=== PATIENT | male | born 1975 | race Hispanic/Latino ===

== ENCOUNTER 2022-11-23 15:06 | Inpatient (IN) | payer OTHER ==
[2022-11-23] VITALS (31 sets, daily range): BP systolic 92–153; BP diastolic 51–80
[~2022-11-23] VITALS: Ht 170.2 cm; Wt 72.6 kg
[2022-11-23] MEDS ORDERED: HEPARIN 25,000 UNITS/250ML D5W 250 ML IV SCH (17:30)
[2022-11-23] MEDS ORDERED: ONDANSETRON 4MG INJ IVP PRN (17:30)
[2022-11-23] MEDS ORDERED: POTASSIUM CHLORIDE 20MEQ/100ML 100 ML IV PRN (17:30)
[2022-11-23] MEDS ORDERED: LIDOCAINE HCL-MPF 1% 2ML VIAL IV PRN (17:30)
[2022-11-23] MEDS ORDERED: ACETAMINOPHEN 325 MG TAB PO PRN (17:30)
[2022-11-23 17:32] LABS: HEMOGLOBIN A1C 10.1 % (4.0-6.0)
[2022-11-23 17:41] LABS: THYROID STIMULATING HORMONE 2.02 uIU/mL (0.36-3.74)
[2022-11-23 17:49] LABS: BASOPHILS % (AUTO) 0.8 % (0.0-5.0); EOSINOPHILS % (AUTO) 4.2 % (0.0-8.0); HEMATOCRIT 41.8 % (42-54); LYMPHOCYTES % (AUTO) 34.6 % (21.0-51.0); MEAN CORPUSCULAR HEMOGLOBIN 30.6 pg (27.0-33.0); MEAN CORPUSCULAR HGB CONC 36.1 g/dL (32.0-36.0); MEAN CORPUSCULAR VOLUME 84.8 fL (79-99); MONOCYTES % (AUTO) 8.6 % (3.0-13.0); NEUTROPHILS % (AUTO) 51.6 % (40.0-77.0); PLATELET COUNT (AUTO) 229 K/uL (130-400); RED BLOOD CELL COUNT(AUTO) 4.93 MIL/uL (4.50-6.20); RED CELL DISTRIBUTION WIDTH 13.3 % (11.0-15.5); WHITE BLOOD COUNT (AUTO) 8.2 K/uL (4.8-10.8)
[2022-11-23 18:01] LABS: ALBUMIN 3.7 g/dL (3.5-5.0); CREATININE 0.8 mg/dL (0.5-1.5); POTASSIUM 3.8 mmol/L (3.5-5.1); PROTHROMBIN TIME 10.9 SEC (9.6-11.6); TOTAL PROTEIN, SERUM 7.1 g/dL (6.0-8.3)
[2022-11-23 18:03] LABS: PARTIAL THROMBOPLASTIN TIME 34.5 SEC (26.3-35.5)
[2022-11-23] MEDS ORDERED: INSLAN SQ (18:06)
[2022-11-23] MEDS ORDERED: METF-446 PO (18:06)
[2022-11-23] MEDS ORDERED: DOCUSATE SODIUM 100 MG CAP PO PRN (18:30)
[2022-11-23] MEDS ORDERED: DEXTROSE 50%-WATER 50 ML DISP.SYRIN IV PRN (18:30)
[2022-11-23] MEDS ORDERED: IPRATROPIUM 0.5 MG/2.5 ML INH IH PRN (18:30)
[2022-11-23] MEDS ORDERED: GLUCAGON 1MG KIT 1 MG ML IM PRN (18:30)
[2022-11-23] MEDS ORDERED: HYDRALAZINE 20MG/ML VIAL IV PRN (18:30)
[2022-11-23] MEDS ORDERED: DiphenhydrAMINE HCL 50 MG/ML VIAL IV PRN (18:30)
[2022-11-23] MEDS ORDERED: VANCOMYCIN KIT 1 GM/250 ML IV.KIT IV ONE (19:00)
[2022-11-23] MEDS: FAMOTIDINE 20MG VIAL IV SCH (19:55)
[2022-11-23] MEDS: ATORVASTATIN 40 MG TABLET PO SCH (19:55)
[2022-11-23 19:59] LABS: AMPHET/METH SCREEN,URINE NEGATIVE (NEGATIVE); BARBITURATE SCREEN, URINE NEGATIVE (NEGATIVE); BENZODIAZEPINES SCREEN,URINE NEGATIVE (NEGATIVE); CANNABINOID SCREEN,URINE NEGATIVE (NEGATIVE); COCAINE SCREEN,URINE POSITIVE (NEGATIVE); OPIATE SCREEN,URINE NEGATIVE (NEGATIVE); PHENCYCLIDINE SCREEN,URINE NEGATIVE (NEGATIVE)
[2022-11-23] MEDS ORDERED: CEFEPIME HCL 2 GM VIAL IVP SCH (21:00)
[2022-11-23] MEDS: INSULIN HUMULIN R 100 UNIT/ML 3ML SQ SCH (21:56)
[2022-11-24] VITALS (14 sets, daily range): BP systolic 91–118; BP diastolic 37–77
[2022-11-24 04:37] LABS: BASOPHILS % (AUTO) 0.7 % (0.0-5.0); EOSINOPHILS % (AUTO) 3.2 % (0.0-8.0); LYMPHOCYTES % (AUTO) 26.3 % (21.0-51.0); MEAN CORPUSCULAR HEMOGLOBIN 29.4 pg (27.0-33.0); MEAN CORPUSCULAR VOLUME 86.5 fL (79-99); MONOCYTES % (AUTO) 8.5 % (3.0-13.0); PLATELET COUNT (AUTO) 203 K/uL (130-400); RED CELL DISTRIBUTION WIDTH 13.2 % (11.0-15.5); WHITE BLOOD COUNT (AUTO) 12.1 K/uL (4.8-10.8)
[2022-11-24 04:54] LABS: CREATININE 0.7 mg/dL (0.5-1.5); POTASSIUM 3.5 mmol/L (3.5-5.1)
[2022-11-24 05:03] LABS: ALBUMIN 3.4 g/dL (3.5-5.0); MAGNESIUM 1.7 mg/dL (1.80-2.40); PHOSPHORUS 3.4 mg/dL (2.5-4.9); TOTAL PROTEIN, SERUM 6.6 g/dL (6.0-8.3)
[2022-11-24] MEDS: INSULIN HUMULIN R 100 UNIT/ML 3ML SQ SCH ×4 (06:57→21:31)
[2022-11-24] MEDS ORDERED: VANCOMYCIN 1G/250ML KIT 250 ML IV ONE (07:46)
[2022-11-24] MEDS ORDERED: VANCOMYCIN KIT 1 GM/250 ML IV.KIT IV SCH (08:00)
[2022-11-24] MEDS ORDERED: VANCOMYCIN 1G/250ML KIT 250 ML IV SCH (08:00)
[2022-11-24] MEDS: MAGNESIUM 2GM PREMIX 50ML 50 ML IV PRN (08:00)
[2022-11-24] MEDS: FAMOTIDINE 20MG VIAL IV SCH ×2 (08:01→21:29)
[2022-11-24] MEDS ORDERED: ASPIRIN 81 MG EC TAB PO SCH (09:00)
[2022-11-24] MEDS: ASPIRIN 81 MG EC TAB PO SCH ×3 (10:00→21:29)
[2022-11-24] MEDS: COLCHICINE 0.6 MG TABLET PO SCH ×2 (17:25→21:29)
[2022-11-24] MEDS ORDERED: KCL 20 MEQ ERTAB PO PRN (18:30)
[2022-11-24] MEDS ORDERED: POTASSIUM CHLORIDE 10% ELIXIR 20 MEQ/15 ML UDCUP PO PRN (18:30)
[2022-11-24] MEDS: ATORVASTATIN 40 MG TABLET PO SCH (21:29)
[2022-11-25 00:14] VITALS: BP 125/77
[2022-11-25 03:59] VITALS: BP 111/76
[2022-11-25 05:49] LABS: BASOPHILS % (AUTO) 0.9 % (0.0-5.0); EOSINOPHILS % (AUTO) 4.5 % (0.0-8.0); HEMATOCRIT 44.4 % (42-54); LYMPHOCYTES % (AUTO) 40.6 % (21.0-51.0); MEAN CORPUSCULAR HEMOGLOBIN 29.1 pg (27.0-33.0); MEAN CORPUSCULAR HGB CONC 33.8 g/dL (32.0-36.0); MONOCYTES % (AUTO) 9.9 % (3.0-13.0); NEUTROPHILS % (AUTO) 43.8 % (40.0-77.0); PLATELET COUNT (AUTO) 225 K/uL (130-400); RED BLOOD CELL COUNT(AUTO) 5.16 MIL/uL (4.50-6.20); WHITE BLOOD COUNT (AUTO) 9.9 K/uL (4.8-10.8)
[2022-11-25 06:06] LABS: ALBUMIN 3.4 g/dL (3.5-5.0); CREATININE 0.8 mg/dL (0.5-1.5); MAGNESIUM 1.7 mg/dL (1.80-2.40); POTASSIUM 3.6 mmol/L (3.5-5.1); TOTAL PROTEIN, SERUM 6.7 g/dL (6.0-8.3)
[2022-11-25] MEDS: INSULIN HUMULIN R 100 UNIT/ML 3ML SQ SCH ×2 (06:45→11:58)
[2022-11-25] MEDS ORDERED: NAPR-1023 PO (07:10)
[2022-11-25] MEDS ORDERED: ATOR40TA69 PO (07:10)
[2022-11-25] MEDS ORDERED: COLC0.6T73 PO (07:10)
[2022-11-25] MEDS ORDERED: AEC81 PO (07:10)
[2022-11-25 08:00] VITALS: BP 118/72
[2022-11-25] MEDS: FAMOTIDINE 20MG VIAL IV SCH (08:36)
[2022-11-25] MEDS: ASPIRIN 81 MG EC TAB PO SCH (08:36)
[2022-11-25] MEDS: COLCHICINE 0.6 MG TABLET PO SCH (08:37)
[2022-11-25] MEDS: MAGNESIUM 2GM PREMIX 50ML 50 ML IV PRN (10:26)
[2022-11-25 12:00] VITALS: BP 118/79
== END 2022-11-25 14:00 | DRG 314 ==
LOC: 2BH 15:50 → EEVIPCON 15:50 → 2BH 16:16 → 3AH 11-24 10:24
PROVIDERS: ADMIT Internal Medicine; ATTEND Internal Medicine
DX: I31.9 Disease of pericardium, unspecified (principal); J96.01 Acute respiratory failure with hypoxia; E87.1 Hypo-osmolality and hyponatremia; E11.65 Type 2 diabetes mellitus with hyperglycemia; I25.10 Atherosclerotic heart disease of native coronary artery without angina pectoris; F14.10 Cocaine abuse, uncomplicated; E03.9 Hypothyroidism, unspecified; E78.5 Hyperlipidemia, unspecified; F17.200 Nicotine dependence, unspecified, uncomplicated; I10 Essential (primary) hypertension; Z79.02 Long term (current) use of antithrombotics/antiplatelets; Z79.82 Long term (current) use of aspirin; Z79.84 Long term (current) use of oral hypoglycemic drugs; Z83.3 Family history of diabetes mellitus
CPT/HCPCS: 36415; 71045; 80053; 80061; 80305; 82330; 82948; 83036; 83605; 83735; 83880; 84100; 84443; 84484; 85025; 85610; 85651; 85730; 86140; 87040; 87635; 87804; 93005; 93306; 93356; G0378; J0692; J1200; J1815; J3370; J3475; J3490

== ENCOUNTER → 2023-04-27 | Outpatient (CLI) | payer OTHER ==
[~2023-04-27] MED LIST: AEC81 PO; ATOR40TA69 PO; COLC0.6T73 PO; INSLAN SQ; METF-446 PO; NAPR-1023 PO
== END | disposition home or self-care (01) ==
LOC: RAH 08:47
PROVIDERS: ATTEND Student in an Organized Health Care Education/Training Program
DX: I10 Essential (primary) hypertension (principal); I73.9 Peripheral vascular disease, unspecified; I32 Pericarditis in diseases classified elsewhere; Z79.899 Other long term (current) drug therapy
CPT/HCPCS: 78452; 96374; 93017; A9500 ×2